=== PATIENT | female | born 1960 | race Caucasian/White ===

== ENCOUNTER 2018-10-10 14:03 | Emergency (ER) | payer OTHER ==
--- NOTE | 2018-10-10 14:18 | NUR ---
NO RESPONSE FROM WAIT ROOM X1
--- NOTE | 2018-10-10 14:36 | NUR ---
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
--- NOTE | 2018-10-10 14:54 | NUR ---
VETERINARY MEDICINE DOCTOR: NO ANSWER TO TRIAGE X3 AT THIS TIME
--- NOTE | 2018-10-10 15:10 | NUR ---
PARISH WORKER. NO ANSWER X4 TO TRIAGE FROM LOBBY. BATCH MIXER OPERATOR NOTIFIED
== END 2018-10-10 15:40 | disposition left against medical advice (07) ==
LOC: ED 15:34
DX: Z53.21 Procedure and treatment not carried out due to patient leaving prior to being seen by health care provider (principal)